=== PATIENT | male | born 1995 | race Two or more races ===

== ENCOUNTER 2017-03-24 14:41 | Inpatient (IN) | payer SELFPAY, MEDICAID ==
[2017-03-24 15:37] LABS: BASO # 0.1 x10^3/uL (0.0-0.2); BASO % 0 % (0-3); EOS # 0.1 x10^3/uL (0.0-0.7); EOS % 0 % (0-3); HEMATOCRIT 49.2 % (39.0-53.0); HEMOGLOBIN 16.4 g/dL (13.0-17.5); LYMPH # 2.6 x10^3/uL (1.0-4.8); LYMPH % 11 % (24-48); MEAN CORPUSCULAR HEMOGLOBIN 28 pg (25-35); MEAN CORPUSCULAR HGB CONC 33 g/dL (31-37); MEAN CORPUSCULAR VOLUME 84 fL (79-100); MONO # 2.2 x10^3/uL (0.0-1.1); MONO % 9 % (0-9); NEUT # 18.5 x10^3uL (1.8-7.7); NEUT % 79 % (31-73); PLATELET COUNT 285 x10^3/uL (140-400); RED BLOOD COUNT 5.85 x10^6/uL (4.30-5.70); RED CELL DISTRIBUTION WIDTH 13.8 % (11.5-14.5); WHITE BLOOD COUNT 23.5 x10^3/uL (4.0-11.0)
[2017-03-24 15:38] LABS: ADD MAN DIFF? YES
[2017-03-24 15:52] LABS: ANION GAP 11 (6-14); BLOOD UREA NITROGEN 13 mg/dL (8-26); CALCIUM 9.8 mg/dL (8.5-10.1); CARBON DIOXIDE 28 mmol/L (21-32); CHLORIDE 100 mmol/L (98-107); GFR 95.3; GLUCOSE 109 mg/dL (70-99); POTASSIUM 3.9 mmol/L (3.5-5.1); SODIUM 139 mmol/L (136-145)
[2017-03-24 16:04] LABS: % BANDS 6 % (0-9); % LYMPHS 13 % (24-48); % MONOS 10 % (0-10); % SEGS 71 % (35-66)
[2017-03-24 16:05] LABS: PLT ESTIMATE ADEQUATE (ADEQUATE); TOXIC GRANULATION SLIGHT
[2017-03-24] MEDS: IV NORMAL SALINE 1000ML BAG 1,000 ML IV ×2 (16:16→20:19)
[2017-03-24] MEDS ORDERED: CONTRAST GIVEN MC (16:45)
[2017-03-24] MEDS: IOHEXOL 300 MG/ML 100ML VIAL. IV (16:51)
[2017-03-24] MEDS: PIPERACILLIN/TAZOBACTAM 3.375 GM in IV NORMAL SALINE 50ML 50 ML IV (17:21)
[2017-03-24] MEDS: ONDANSETRON PF 4 MG/2 ML VIAL. IV (19:21)
[2017-03-24] MEDS: MORPHINE SULFATE 2 MG/ML DISP.SYRIN. IV ×2 (19:21→21:17)
[2017-03-24] MEDS ORDERED: LABETALOL 20 MG/4 ML DISP.SYRIN. IVP (21:30)
[2017-03-24] MEDS ORDERED: PHENOL ORAL SPRAY 177ML BOTTLE. PO (21:30)
[2017-03-24] MEDS ORDERED: PIP/TAZO PER PHARMACY MC (22:00)
[2017-03-24] MEDS: PIPERACILLIN/TAZOBACTAM 4.5 GM in IV NORMAL SALINE 100ML 100 ML IV (22:28)
[2017-03-25] MEDS: MORPHINE SULFATE 4 MG/ML DISP.SYRIN. IV ×3 (00:31→05:09)
[2017-03-25 02:50] LABS: ADD MAN DIFF? NO
[2017-03-25 02:53] LABS: BASO # 0.1 x10^3/uL (0.0-0.2); BASO % 1 % (0-3); EOS # 0.4 x10^3/uL (0.0-0.7); EOS % 3 % (0-3); HEMATOCRIT 47.6 % (39.0-53.0); LYMPH # 3.4 x10^3/uL (1.0-4.8); LYMPH % 27 % (24-48); MEAN CORPUSCULAR HEMOGLOBIN 29 pg (25-35); MEAN CORPUSCULAR HGB CONC 34 g/dL (31-37); MEAN CORPUSCULAR VOLUME 85 fL (79-100); MONO # 1.4 x10^3/uL (0.0-1.1); MONO % 11 % (0-9); NEUT # 7.3 x10^3uL (1.8-7.7); NEUT % 58 % (31-73); PLATELET COUNT 269 x10^3/uL (140-400); RED BLOOD COUNT 5.61 x10^6/uL (4.30-5.70); RED CELL DISTRIBUTION WIDTH 13.6 % (11.5-14.5); WHITE BLOOD COUNT 12.5 x10^3/uL (4.0-11.0)
[2017-03-25 03:05] LABS: ANION GAP 10 (6-14); BLOOD UREA NITROGEN 11 mg/dL (8-26); CALCIUM 9.1 mg/dL (8.5-10.1); CARBON DIOXIDE 29 mmol/L (21-32); CHLORIDE 102 mmol/L (98-107); CREATININE 1.1 mg/dL (0.7-1.3); GFR 85.3; GLUCOSE 99 mg/dL (70-99); POTASSIUM 4.2 mmol/L (3.5-5.1); SODIUM 141 mmol/L (136-145)
[2017-03-25] MEDS: PIPERACILLIN/TAZOBACTAM 4.5 GM in IV NORMAL SALINE 100ML 100 ML IV ×4 (04:18→22:12)
[2017-03-25] MEDS: IV NORMAL SALINE 1000ML BAG 1,000 ML IV ×2 (05:11→14:52)
[2017-03-25] MEDS ORDERED: ACETAMINOPHEN 325 MG TABLET. PO (10:00)
[2017-03-25 10:36] LABS: NEGATIVE OBC STREP NEG; POSITIVE OBC STREP POS
[2017-03-25] MEDS: KETOROLAC 15 MG/ML VIAL. IV ×3 (11:16→22:13)
[2017-03-25] MEDS: ONDANSETRON PF 4 MG/2 ML VIAL. IV (11:16)
[2017-03-25] MEDS: SIMETHICONE/SOD BICARB/CITRIC ACID PACKET. PO (15:00)
[2017-03-25] MEDS: BARIUM SULFATE 60% 355 ML SUSP PO (15:42)
[2017-03-25] MEDS: BARIUM SULFATE 340 GM SUSPENSION. PO (15:43)
[2017-03-25 16:15] LABS: MRSA BY PCR Negative (Negative)
[2017-03-26] MEDS: PIPERACILLIN/TAZOBACTAM 4.5 GM in IV NORMAL SALINE 100ML 100 ML IV ×3 (03:32→10:24)
[2017-03-26] MEDS: FLU VACC QS2017-18 (36MOS+)/PF 0.5 ML SYRINGE. VAX IM (10:26)
== END 2017-03-26 12:05 | disposition home or self-care (01) | DRG 200 ==
LOC: ER 14:41 → 1 WEST ICU 18:52 → 6 SOUTH 03-25 19:15
DX: J98.2 Interstitial emphysema (principal); T79.7XXA Traumatic subcutaneous emphysema, initial encounter; R13.10 Dysphagia, unspecified; J02.9 Acute pharyngitis, unspecified; F12.90 Cannabis use, unspecified, uncomplicated; F17.210 Nicotine dependence, cigarettes, uncomplicated; F41.9 Anxiety disorder, unspecified; I10 Essential (primary) hypertension; K21.9 Gastro-esophageal reflux disease without esophagitis; F32.9 Major depressive disorder, single episode, unspecified; D72.829 Elevated white blood cell count, unspecified; R11.10 Vomiting, unspecified
CPT/HCPCS: 36415; 70491; 71250; 74176; 74220; 80048; 85007; 85025; 87070; 87641; 87880; 90686; 92610-GN; 96361; 96365; 99285-25; J1885; J2060; J2270; J2405; J2543; J7030; Q9967